=== PATIENT | male | born 1945 | race Caucasian/White ===

== ENCOUNTER 2017-01-05 10:03 | Day surgery (SDC) | payer MEDICARE ==
[~2017-01-05] VITALS: Ht 175.3 cm; Wt 96.6 kg
[~2017-01-05 10:03] MED LIST: NS 1000P @30 MLS/HR (KVO) IV SCH
[2017-01-05] MEDS ORDERED: ZOCO40TA PO (10:30)
[2017-01-05] MEDS ORDERED: ALLO300T2 PO (10:30)
[2017-01-05] MEDS ORDERED: METF500T PO (10:30)
[2017-01-05] MEDS ORDERED: COUM7.5T PO (10:30)
[2017-01-05] MEDS ORDERED: MULT1TAB46 (10:30)
[2017-01-05] MEDS ORDERED: ASPIRIN 81 MG CHEW TAB PO SCH (10:30)
[2017-01-05] MEDS ORDERED: OMEGCAP PO (10:30)
[2017-01-05] MEDS ORDERED: GLIP10TA6 PO (10:30)
[2017-01-05] MEDS ORDERED: CARV25TA PO (10:30)
[2017-01-05 10:31] VITALS: BP 160/91; PULSE 78; RESP 16; TEMP 98.3; O2SAT 98
[2017-01-05 10:48] LABS: AUTOMATED NEUTROPHIL # 5.1 TH/MM3 (1.8-7.7); BASOPHIL % 0.5 % (0.0-2.0); EOSINOPHIL # 0.2 TH/MM3 (0-0.4); EOSINOPHIL % 2.3 % (0.0-4.0); HEMO FLAGS DIFF FINAL; LYMPH % 25.5 % (9.0-44.0); LYMPHOCYTE # 2.1 TH/MM3 (1.0-4.8); MEAN CELL VOLUME 99.2 FL (80.0-100.0); MEAN CORPUSCULAR HEMOGLOBIN 32.9 PG (27.0-34.0); MEAN CORPUSCULAR HGB CONC 33.1 % (32.0-36.0); MONO % 8.3 % (0.0-8.0); NEUT % 63.4 % (16.0-70.0); PLATELET COUNT 115 TH/MM3 (150-450); RED BLOOD COUNT 4.13 MIL/MM3 (4.50-5.90); RED CELL DISTRIBUTION WIDTH 13.7 % (11.6-17.2); WHITE BLOOD COUNT 8.1 TH/MM3 (4.0-11.0)
[2017-01-05 11:03] LABS: APTT (PATIENT) 27.9 SEC (24.3-30.1); INTERNATIONAL NORMALIZED RATIO 1.2 RATIO; PROTHROMBIN TIME - PATIENT 13.4 SEC (9.8-11.6)
[2017-01-05 11:08] LABS: BICARBONATE 26.9 MEQ/L (21.0-32.0)
[2017-01-05] MEDS ORDERED: HEPARIN-NS/PF INJ 500 ML ONE (12:00)
--- NOTE | 2017-01-05 12:55 | CATHPROC ---
[facility] Report Study Information Study Number Admission Scheduled Start Study Start [id number] Jan 05 2017 10:03AM 01/05/2017 Jan 05 2017 11:55AM [place] [facility] Cardiac Catheterization Admit Source Facility Department Other [facility] - Bee Worker Physician and Clinical Staff Initial Ajti Mccall Welfare ManagerMichelle Faith RN Welfare ManagerDeann Phillips RN Other cathlab, cathlab Recorder Mitesh Wilks RCIS(BS) Scrub Essence Alvarado,OWNER TECH2 Procedures Performed Procedure Location (Site) Vessel Name Coronary Angiograms LCA Left Coronary Coronary Angiograms RCA Right Coronary L Heart Cath LV Gram-hand inj. LV LV Ventricle Equipment Time Exercise Instructor Description Size Mfg Part Number Used/Scraped TRANSDUCER, TRUWAVE [id number] 12:03 SIFUENTES HANLEY * Used W/STOCKCOCK *[id number] *[id number] *[id number] 12:03 [employer] PACK, CCL CUSTOM * Used *[id number] 12:03 [employer] PACER PEN, SKIN DUAL W/ RULER * Used *[id number] 12:03 Whatever SHEATH, FR4.5 PRELUDE 11CM FR 4.5 Used [id number] 12:03 [employer] MEDICAL WIRE, 3MMJ .035 180CM 180CM Used *[id number] 12:03 NAMIC MANIFOLD, 4 PORT * Used *[id number] 12:03 NYCOMED OMNIPAQUE, 350 MG, 150ML 150ML [id number] Used [id number] 12:03 [employer] BLANK[employer],WARM AIR CCL * Used *[id number] History: Current Medications Medication Dosage/Unit Route Frequency Last Date/Time Taken Statins (any) Beta Geraldine ASA Coumadin History: Allergies Allergy Reaction No Known Allergies History: Risk Factors Family History of Hypertension Dyslipidemia Previous RI Previous Heart Failure Premature CAD Yes Yes No No No Prior Valve Prior PCI Prior CABG Surgery No No No Cerebrovascular Peripheral Artery Chronic Lung On Dialysis Diabetes Diabetes Therapy Disease Disease Disease No No No No Yes Oral History: Stress Tests Stress or Imaging Studies Performed Yes Standard Exercise Stress Test No Stress Echo No Stress Test SPECT Stress Test SPECT Result Stress Test SPECT Ischemia Risk/Extent Yes Positive Intermediate Stress Test CMR No Cardiac CTA Coronary Calcium Score No No History: Other Disease Selection Items HTN History: Other Current Smoker No Labs Hgb (g/dl) Hct (%) WBC (l/cumm) Platelets (thousands) 11.60-17.00 35.00-51.00 4.00-11.00 150.00-450.00 13.6 41 8.1 115 Glucose (mg/dl) BUN (mg/dl) Creatinine (mg/dl) BUN:Creatinine (1:x) 74.00-106.00 7.00-18.00 0.50-1.30 10.00-20.00 157 13 0.9 14.4 Na (meq/l) K (meq/l) 136.00-145.00 3.50-5.10 141 4 INR (PTT:PT) 0.90-1.10 1.2 CPK-MB (ng/ML) 0.50-3.60 Not Drawn Medication Medication Total Dose (Bolus/Oral) Medication Total Dosage/Unit 1% XYLOCAINE 20 mL Medications (Bolus/Oral) Medication Time Given Dosage/Unit Administered By Reason 1% XYLOCAINE 01/05/2017 12:42:01 PM 20 mL Ajit Ibrahim 20 mL 1% XYLOCAINE given in lab by Ajit Ibrahim in Right Groin via Subcutaneous. Medication (Drip) Medication Time Given Dosage/Unit Concentration/Unit Diluent (ml) Solutio n IV Solutions 01/05/2017 11:55:08 AM 0 mL (IV) 500 NaCl .9 Patient arrived on IV Solutions given by cathlab, cathlab in Left Antecubital via Peripheral IV. Pump /Drip Flow = 20 ml/hr using NaCl .9. Ordered by Ajit Ibrahim. Initial Case Assessment Cardiovascular HR Rhythm NIBP Chest Pain 87 sinus 157/96 0 Edema Present Skin color Skin None Normal Warm Dry Circulatory - Right Pulses Dorsalis Pedis Femoral 3 3 Scale (0,1,2,3,4,d) Circulatory - Left Pulses Dorsalis Pedis Femoral 3 1 Scale (0,1,2,3,4,d) Neurological State Oriented to time-place- Alert Moves all extremities person Respiration - General Respiration Rate SpO2 (%) (B/min) 15 96 Final Case Assessment Cardiovascular HR Rhythm NIBP Chest Pain 71 sinus 161/100 0 Edema Present Skin color Skin None Normal Warm Dry Circulatory - Right Pulses Dorsalis Pedis Femoral 3 3 Scale (0,1,2,3,4,d) Circulatory - Left Pulses Dorsalis Pedis Femoral 3 1 Scale (0,1,2,3,4,d) Neurological State Oriented to time-place- Alert Moves all extremities person Respiration - General Respiration Rate SpO2 (%) (B/min) 15 98 Chronological Log Time Study Chronological Log 11:54:59 Patient arrived via Bed. 11:55:00 Patient Name, D.O.B, / Armband Verified By R.N. 11:55:00 Consent signed by the physician and the patient and verified by the Bee Worker staff. Verbal Stimulation=~VERBAL~ Physical Stimulation=~PHYSICAL~ Airway=~AIRWAY~ Respiration=~RESPIR ATION~ 11:55:01 TOTAL=~TOTAL~. (0=absent, 1=limited, 2=present) 11:55:01 Pre-op and post- op instructions given; patient acknowledges understanding of instructions. 11:55:02 Presedation assessment performed by Bee Worker RN. 11:55:03 Immediate Presedation assesment performed by physician. 11:55:04 Patient has been NPO for More than 6Hrs. 11:55:04 Skin Breakdown- 11:55:06 Patient Warmer Placed on the Table. 11:55:07 Frank Prominences Protected 11:55:08 A # 20 IV was noted in the Antecubital (left). Grade = 0 Patient arrived on IV Solutions given by cathyane tam in Left Antecubital via Peripheral IV . Pump/Drip Flow = 20 11:55:08 ml/hr using NaCl .9. Ordered by Ajit Ibrahim. 11:55:09 History and physical on the chart or being dictated. Vitals capture started with the following parameters, Patient=Adult, Interval=5 min, Initial Pr wtybfb=135 mmHg, 12:00:54 Deflation Rate=5 mmHg, Cuff placed on Right Arm 12:01:32 HR=71 bpm, TAZV=534/96 mmhg, SpO2=96.0 %, Resp=17 B/min, Pain=0, Angeles=10, Hardy=2 Assessment: Initial Case, HR=87 BPM, Rhythm=sinus, UVKY=229/96 mmhg, Chest Pain=0, Edema=None, Color=Normal, Skin = Warm, Dry Right Pulses: Jose Ped=3, Femoral=3 12:03:07 Left Pulses: Jose Ped=3, Femoral=1 Neurological: State=Alert, Ox3, ALBERTO Respiration: Resp=15 B/min, SpO2=96 % 12:03:28 Reference ECG taken 12:03:31 Bilateral groins prepped with 2% chlorhexidine, and with a 3 min. waiting time. 12:04:14 Right groin prepped with 2% chlorhexidine, and with a 3 min. waiting time. 12:06:33 HR=71 bpm, LDPF=606/93 mmhg, SpO2=96.0 %, Resp=16 B/min, Pain=0, Angeles=10, Hardy=2 12:07:19 MD paged 12:07:42 MD responded 12:08:49 Pressure channel 1 zero failed. 12:09:07 Pressure channel 1 zeroed. 12:11:35 HR=70 bpm, TPZG=912/91 mmhg, SpO2=96.0 %, Resp=16 B/min, Pain=0, Angeles=10, Hardy=2 12:16:34 HR=77 bpm, PUMP=946/85 mmhg, SpO2=95.0 %, Resp=15 B/min, Pain=0, Angeles=10, Hardy=2 12:21:35 HR=74 bpm, IWMZ=719/88 mmhg, SpO2=96.0 %, Resp=13 B/min, Pain=0, Angeles=10, Hardy=2 12:26:38 HR=77 bpm, ZQNW=168/86 mmhg, SpO2=93.0 %, Resp=14 B/min, Pain=0, Angeles=10, Hardy=2 12:31:37 HR=66 bpm, XCSY=508/86 mmhg, SpO2=95.0 %, Resp=15 B/min, Pain=0, Angeles=10, Hardy=2 12:36:36 HR=65 bpm, LYQI=937/86 mmhg, SpO2=94.0 %, Resp=16 B/min, Pain=0, Angeles=10, Hardy=2 12:37:45 MD arrived. 12:37:50 Contrast Scanned 12:37:51 Immediate Presedation assesment performed by physician. Time Out. Correct patient, correct procedure,correct physician, ,power injector not loaded with contrast with surgical 12:41:25 team present. Time Out Concurred by , individual staff in procedure 12:41:37 HR=75 bpm, ESJX=169/85 mmhg, SpO2=95.0 %, Resp=13 B/min, Pain=0, Angeles=10, Hardy=2 12:41:52 Case Start 12:41:53 Verbal Stimulation=2 Physical Stimulation=2 Airway=2 Respiration=2 TOTAL=8. (0=absent, 1=li mited, 2=present) 12:42:01 20 mL 1% XYLOCAINE given in lab by Ajit Ibrahim in Right Groin via Subcutaneous. 12:43:27 Access site was Right Femoral Artery. 12:43:32 A SHEATH, FR4.5 PRELUDE 11CM FR 4.5 was advanced into the Fem Art (right) using the Percuta neous technique. A JR 4.0 INFINITI CATHETER FR 4 was advanced over a wire. OMNIPAQUE, 350 MG, 150ML 150ML was us ed for 12:43:44 injections. Recorded Pressure: LV, HR=74, Condition=Condition 1 12:44:37 (Left Ventricle) LV 151/6/16 12:44:41 The LV was manually injected with 10 cc's and visualized. OMNIPAQUE, 350 MG, 150ML 150ML us ed. Recorded Pressure: LV, Ao, HR=77, Condition=Condition 1 12:44:52 (Left Ventricle) LV 144/10/15, (Aorta) Ao 144/81/109 Recorded Pressure: Ao, HR=70, Condition=Condition 1 12:45:04 (Aorta) Ao 140/78/104 12:45:09 The RCA was injected and visualized at various angles. OMNIPAQUE, 350 MG, 150ML 150ML used . 12:45:19 Catheter was removed A JL 4.0 INFINITI CATHETER FR 4 was advanced over a wire. OMNIPAQUE, 350 MG, 150ML 150ML was us ed for 12:45:20 injections. 12:46:20 The LCA was injected and visualized at various angles. OMNIPAQUE, 350 MG, 150ML 150ML used . 12:46:36 HR=75 bpm, QFMA=462/100 mmhg, SpO2=97.0 %, Resp=17 B/min, Pain=0, Angeles=10, Hardy=2 12:48:21 Catheter was removed 12:48:25 Case End Assessment: Final Case, HR=71 BPM, Rhythm=sinus, YJOK=367/100 mmhg, Chest Pain=0, Edema=None, Color=Normal, Skin = Warm, Dry Right Pulses: Jose Ped=3, Femoral=3 12:48:48 Left Pulses: Jose Ped=3, Femoral=1 Neurological: State=Alert, Ox3, ALBERTO Respiration: Resp=15 B/min, SpO2=98 % 12:49:01 Sheath(s) left in place, will be removed in Holding Area 12:49:02 Sterile dressing applied to site 12:49:03 No case complications noted. 12:49:03 Cine recording checked. 12:49:05 Bedside Report will be given. 12:49:07 Contrast Scanned 12:49:08 Verbal Stimulation=2 Physical Stimulation=2 Airway=2 Respiration=2 TOTAL=8. (0=absent, 1=l imited, 2=present) 12:49:15 A Left Heart Cath was performed. 12:51:39 HR=72 bpm, OUOK=145/92 mmhg, SpO2=97.0 %, Resp=10 B/min, Pain=0, Angeles=10, Hardy=2 12:53:20 Vitals capture stopped. 12:53:21 Patient moved to [facility] End Study - Contrast Media Used In Study Contrast Total Opened (mL) Total Used (mL) Total Wasted (mL) Omnipaque 45 45 0 End Study - Maximum Contrast Load Max Contrast Load (mL) 536.6 End Study - Radiation Exposure Fluoro Time (minutes) 0.8 End Study - Patient Disposition Complications Transferred To Interventional Outcome No Bee Worker Holding No attempt made
[2017-01-05] MEDS ORDERED: BACITRACIN OINT 0.9 GM PKT TOP ONE (13:00)
[2017-01-05] MEDS ORDERED: MISC INFORMATION XX ONE (13:00)
[2017-01-05] MEDS ORDERED: SODIUM CHLORIDE 0.9% FLUSH 10 ML FLUSH IV FLUSH PRN (13:00)
[2017-01-05] MEDS ORDERED: IOHEXOL 350 MG/ML 50 ML BTL (for Cath Lab) OTHER ONE (15:05)
[2017-01-05] MEDS ORDERED: SODIUM CHLORIDE 0.9% FLUSH 10 ML FLUSH IV FLUSH SCH (21:00)
--- NOTE | 2017-01-06 11:44 | MA ---
cc: JOSE J HOUSER M.D. DATE 01/05/2017 PROCEDURE PERFORMED Left heart catheterization, left ventriculography, coronary angiography. INDICATION 1. Small to moderate-sized reversal defect in the anteroapical wall and inferior wall, small fixed defect in the posterior wall. 2. Ejection fraction 62%. 3. Chronic renal insufficiency. 4. Diabetes mellitus. 5. Coronary artery disease. 6. Silent ischemia. PROCEDURE The patient was brought to the Cardiac Catheterization Laboratory, prepped and draped in the usual sterile fashion. 10 cc of 1% lidocaine was used to locally anesthetize the right common femoral artery. A 4-Mosotho sheath was subsequently placed in the right common femoral artery. 4-Mosotho, JR-4 and JL-4 catheters were used to perform left and right coronary angiography and left ventriculography. FINDINGS LV pressure is 145/15-16. EF of 60%. The right coronary is nondominant. It has no significant disease angiographically. The left main coronary has no significant disease angiographically. The left circumflex is a dominant vessel with mild diffuse disease in the proximal to mid segment up to 10% angiographically. It is a large vessel in the proximal to mid-segment up to probably 5-6-mm in diameter. The LAD is transapical; it has mild diffuse disease in the proximal segment up to 10-20% angiographically. The first diagonal artery is a medium-sized vessel with no significant disease angiographically. CONCLUSION 1. Angiographically mild two-vessel coronary disease in a left dominant system as detailed above. 2. Normal LV systolic function. 3. Ejection fraction 60%. RECOMMENDATIONS 1. Medical management of coronary disease. 2. I have instructed the patient personally to hold his Metformin/Glucophage for 48 hours postprocedure. Also the nursing and laborer yard staff have also instructed the patient to do the same. 3. I have also instructed the patient myself personally to resume his Coumadin at his previous dose beginning tonight. The patient monitors his INR at home. 4. I have also instructed the patient myself personally to follow up with me in the office tomorrow, January 06, 2017. The patient understands. MD YAQUELIN Oleary/MAGALY /12:51 PM /12:37 PM
--- NOTE | 2017-01-06 12:13 | EKG ---
Date Performed: 01/05/2017 Time Performed: 10:42:32 PTAGE: 71 years EKG: Atrial fibrillation. Left axis deviation Poor R wave progression - probable normal variant Septal T wave changes are nonspecific Abnormal ECG NO PREVIOUS TRACING DOCTOR: Chucho Cisneros Interpretating Date/Time 01/06/2017 12:12:34
== END 2017-01-05 15:43 | disposition home or self-care (01) ==
LOC: HDOC 10:03 → HDIC 10:03 → HDOC 15:43
PROVIDERS: ATTEND Internal Medicine Interventional Cardiology
DX: I25.10 Atherosclerotic heart disease of native coronary artery without angina pectoris (principal); N18.9 Chronic kidney disease, unspecified; E11.9 Type 2 diabetes mellitus without complications; I34.0 Nonrheumatic mitral (valve) insufficiency; I48.91 Unspecified atrial fibrillation; Z01.810 Encounter for preprocedural cardiovascular examination; Z01.818 Encounter for other preprocedural examination
CPT/HCPCS: 80048; 85025; 85610; 85730; 93005; 93458; C1769; C1893; J1644; Q9967